=== PATIENT | female | born 1955 ===

== ENCOUNTER 2021-07-25 06:20 | Day surgery (SDC) | payer OTHER ==
[~2021-07-25 06:20] MED LIST: NAPR500T14 PO; RAYOS5 MG PO
== END 2021-07-25 12:20 | disposition home or self-care (01) ==
LOC: CIR.AMB 06:20
PROVIDERS: ATTEND Surgery Surgery of the Hand
DX: M19.042 Primary osteoarthritis, left hand (principal); M20.092 Other deformity of left finger(s); J45.909 Unspecified asthma, uncomplicated; K21.9 Gastro-esophageal reflux disease without esophagitis

== ENCOUNTER 2025-05-09 05:34 | Day surgery (SDC) | payer OTHER ==
[2025-05-03 10:03] VITALS: BP 121/81
[2025-05-09] MEDS ORDERED: CEFOXITIN SODIUM 2,000 MG VIAL IV ONE (10:39)
[2025-05-09] MEDS ORDERED: LIDOCAINE HCL 1%/EPINEPHRINE 20ML VIAL IJ ONE (10:45)
[2025-05-09] MEDS ORDERED: BUPIVACAINE HCL/MPF 0.5% 30ML VIAL ONE (10:45)
[2025-05-09] MEDS ORDERED: DUI500 PO (12:25)
[2025-05-09] MEDS ORDERED: TRAM1TAB98 PO (12:26)
[2025-05-09] MEDS ORDERED: CEFAZOLIN SODIUM 1,000 MG VIAL IV ONE (12:30)
[2025-05-09] MEDS ORDERED: CEFAZOLIN SODIUM 1,000 MG VIAL ONE (15:20)
[2025-05-09] MEDS ORDERED: CEFADROXIL 500 MG CAPSULE PO SCH (21:00)
== END 2025-05-09 16:30 | disposition home or self-care (01) ==
LOC: CIR.AMB 05:34
PROVIDERS: ATTEND Orthopaedic Surgery Sports Medicine
DX: D21.22 Benign neoplasm of connective and other soft tissue of left lower limb, including hip (principal); M20.12 Hallux valgus (acquired), left foot; L92.8 Other granulomatous disorders of the skin and subcutaneous tissue